=== PATIENT | female | born 1955 | race American Indian/Alaskan Native ===

== ENCOUNTER 2019-01-25 23:56 | Emergency (ER) | payer SELFPAY ==
--- NOTE | 2019-01-26 00:14 | Emergency Department Report ---
HPI - General Time Seen by Provider: 01/26/19 00:12 - HPI HPI: Room 2 The patient is a 63-year-old female presenting with a chief complaint of chest pain. The patient states her symptoms began this evening at approximately 21:00 with substernal chest pain associated with shortness of breath, nausea/vomiting and diaphoresis. Patient states she took an aspirin but it did not help. Patient gets her pain score 10/10. The patient states she had a cardiac stent placed in 2008 Location: Chest Duration: Constant since 21:00 Quality: Pain Severity: 10/10 Modifying factors: [see above] Context: [see above] Mode of transportation: [not driving] ED Past Medical Hx - Past Medical History Hx Hypertension: Yes Hx Heart Attack/AMI: Yes - Surgical History Hx Coronary Stent: Yes (2008) - Family History Family history: no significant - Social History Smoking Status: Never Smoker Substance Use Type: None - Medications Home Medications: Home Medications Medication Instructions Recorded Confirmed Last Taken Type Aspirin [Aspirin BABY CHEW TAB] 81 mg PO DAILY 11/17/14 11/17/14 Unknown History amLODIPine [Norvasc] 5 mg PO DAILY #90 tab 11/17/14 Unknown Rx Ciprofloxacin HCl [Ciprofloxacin 500 mg PO Q12H #14 tab 11/18/14 Unknown Rx TAB] ED Review of Systems ROS: Stated complaint: CHEST PAIN Other details as noted in HPI Constitutional: diaphoresis Eyes: denies: eye pain ENT: denies: throat pain Respiratory: shortness of breath Cardiovascular: chest pain Endocrine: no symptoms reported Gastrointestinal: nausea, vomiting Genitourinary: dysuria Musculoskeletal: denies: back pain Neurological: denies: headache Physical Exam - Physical Exam Physical Exam: GENERAL: The patient is well-developed well-nourished female lying on stretcher appearing to be in moderate discomfort. [] HEENT: Normocephalic. Atraumatic. Extraocular motions are intact. Patient has moist mucous membranes. NECK: Supple. Trachea midline CHEST/LUNGS: Clear to auscultation. There is no respiratory distress noted. HEART/CARDIOVASCULAR: Regular. There is no tachycardia. There is no gallop rub or murmur. ABDOMEN: Abdomen is soft, nontender. Patient has normal bowel sounds. There is no abdominal distention. SKIN: There is no rash. There is no diaphoresis. NEURO: The patient is awake, alert, and oriented. The patient is cooperative. The patient has normal speech MUSCULOSKELETAL: There is no evidence of acute injury. ED Course - Reevaluation(s) Reevaluation #1: 01/26/19 00:29 Status post medication the patient states her pain has decreased to a 4/10 - Consultations Consultation #1: 01/26/19 00:09 EKG sent to cardiology (Dr Odom) 01/26/19 00:13 Dr. Odom called Consultation #2: 01/26/19 00:[address] Up- will come into hospital for cath ED Medical Decision Making - Lab Data Result diagrams: 01/26/19 00:25 - EKG Data -: EKG Interpreted by Me EKG shows normal: sinus rhythm Rate: normal - EKG Data When compared to previous EKG there are: previous EKG unavailable Interpretation: acute ND - Differential Diagnosis STEMI Critical Care Time: Yes Critical care time in (mins) excluding proc time.: 30 Critical care attestation.: If time is entered above; I have spent that time in minutes in the direct care of this critically ill patient, excluding procedure time. ED Disposition Clinical Impression: STEMI (ST elevation myocardial infarction) Disposition: DC-09 OP ADMIT IP TO THIS HOSP Is pt being admited?: Yes Does the pt Need Aspirin: Yes Condition: Serious Referrals: ANTONELLA REED MD [Primary Care Provider] - 3-5 Days Time of Disposition: 00:23 (awaiting recyclable products sorter)
[2019-01-26] MEDS ORDERED: NITRO-BID 2% TP ONE (00:15)
[2019-01-26] MEDS ORDERED: ASPIRIN PO ONE (00:15)
[2019-01-26] MEDS ORDERED: SUBLIMAZE IV ONE (00:15)
[2019-01-26] MEDS ORDERED: ZOFRAN IV ONE (00:15)
[2019-01-26] MEDS ORDERED: HEPARIN 10,000 UNITS/10 ML IV ONE (00:22)
[2019-01-26 00:32] VITALS: BP 161/101
[2019-01-26 00:37] LABS: Basophils # (Auto) 0.1 K/mm3 (0.0-0.1); Basophils % (Auto) 0.6 % (0.0-1.8); Eosinophils # (Auto) 0.1 K/mm3 (0.0-0.4); Eosinophils % (Auto) 1.1 % (0.0-4.3); Hematocrit 41.3 % (30.3-42.9); Lymphocytes # (Auto) 1.8 K/mm3 (1.2-5.4); Lymphocytes % (Auto) 13.8 % (13.4-35.0); Mean Corpuscular HGB Conc 34 % (30-34); Mean Corpuscular Volume 87 fl (79-97); Monocytes # (Auto) 0.4 K/mm3 (0.0-0.8); Monocytes % (Auto) 3.3 % (0.0-7.3); Platelet Count 241 K/mm3 (140-440); Red Blood Count 4.76 M/mm3 (3.65-5.03); Red Cell Distribution Width 15.1 % (13.2-15.2)
[2019-01-26] MEDS ORDERED: CALAN ONE (00:47)
[2019-01-26] MEDS ORDERED: VERSED ONE (00:47)
[2019-01-26] MEDS ORDERED: SUBLIMAZE ONE (00:47)
[2019-01-26] MEDS ORDERED: HEPARIN/NS 5000 UNIT/500ML(CATH LAB) 1,500 ML IR ONE (00:47)
[2019-01-26] MEDS ORDERED: XYLOCAINE 2% INFILTRATI ONE (00:48)
[2019-01-26] MEDS ORDERED: NITROGLYCERIN SYRINGE 3 ML ONE (00:48)
[2019-01-26] MEDS ORDERED: NACL 0.9% 500 ML 500 ML ONE (00:48)
--- NOTE | 2019-01-26 01:07 | XRay Report ---
PROCEDURE: XR CHEST 1V AP TECHNIQUE: A portable upright view the chest was obtained. HISTORY: chest pain COMPARISONS: None FINDINGS: The heart size is at the upper limits of normal. The lungs appear congested. There is mild atelectasi s versus scarring in the middle third of the left lung. Pleural fluid is not seen. There is generaliz ed interstitial prominence. The skeletal structures do not show any acute changes. IMPRESSION: Congestive heart failure pattern. Localized scarring versus atelectasis in the middle third of the le ft lung.. This document is electronically signed by Darius Peralta MD., January 26 2019 01:05:32 AM ET
[2019-01-26] MEDS: HEPARIN 10,000 UNITS/10 ML ONE ×2 (01:08→01:12)
[2019-01-26 01:18] LABS: BUN/Creatinine Ratio 20; Blood Urea Nitrogen 10 mg/dL (7-17); Creatine Kinase MB 2.3 ng/mL (0.0-4.0); Hemolysis Index 44
[2019-01-26] MEDS ORDERED: AGGRASTAT DRIP (12.5 MG/250 ML) 12,500 MCG/250 ML BAG IV ONE (01:21)
[2019-01-26] MEDS ORDERED: TRIDIL DRIP 50MG/250ML 50 MG/250 ML BOTTLE ONE (01:21)
[2019-01-26] MEDS: HEPARIN/ 0.45% NACL-25,000 UNIT/500 ML 25,000 UNIT/500 ML BAG IV SCH ×2 (01:40→01:52)
[2019-01-26] MEDS ORDERED: LOPRESSOR IV ONE (01:42)
[2019-01-26 01:46] LABS: INR 0.98 (0.87-1.13)
[2019-01-26] MEDS ORDERED: TRIDIL DRIP 50MG/250ML 50 MG/250 ML BOTTLE IV ONE (01:52)
[2019-01-26] MEDS ORDERED: MORPHINE IV PRN (01:52)
[2019-01-26] MEDS ORDERED: AGGRASTAT DRIP (12.5 MG/250 ML) 12,500 MCG/250 ML BAG IV SCH (02:00)
[2019-01-26] MEDS ORDERED: HEPARIN/ 0.45% NACL-25,000 UNIT/500 ML 25,000 UNIT/500 ML BAG IV SCH (02:00)
[2019-01-26] MEDS ORDERED: NACL 0.9% 1000 ML 1,000 ML IV SCH (02:00)
[2019-01-26 02:02] LABS: Partial Thromboplastin Time 75.4 Sec. (24.2-36.6)
--- NOTE | 2019-01-26 02:03 | History and Physical Report ---
History of Present Illness Date of examination: 01/26/19 Date of admission: 01/26/2019 Chief complaint: chest pain History of present illness: 63 year-old female history of hypertension and hyperlipidemia coronary disease with PCI in 2008 heavy smoker who states having chest pain midsternal starting at 9 PM while watching TV has some nausea and vomiting but no relief in the pain after aspirin. Patient drove herself to the hospital with chest pain on EKGs found to have an acute anterior wall AK with reciprocal changes patient was brought emergently to the laboratory associate which revealed left main distal 60% LAD stent was patent but just proximal had thrombus within 99% stenosis circumflex was patent obtuse marginal 1 and obtuse marginal 2 were osorio nt RCA proximal ostial 95% lesion mid 90% with left to right collaterals with normal LV function. Perform balloon angioplasty of the mid LAD with 2.5 x 12 mm balloon inflations restored ZAID-3 flow with no stenosis to 50% patient was chest pain-free intravascular ultrasound revealed significant left main stenosis with plaque burden area of 70%. Done via the right radial approach. 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 pt last saw a physcian two years ago only taking asa . Past History Past Medical History: CAD (pci of lad 2008), hypertension, hyperlipidemia Past Surgical History: hysterectomy Social history: smoking. denies: alcohol abuse, prescription drug abuse, IV drug use Medications and Allergies Allergies Allergy/AdvReac Type Severity Reaction Status Date / Time Penicillins Allergy Hives Verified 11/17/14 16:14 Home Medications Medication Instructions Recorded Confirmed Last Taken Type Aspirin [Aspirin BABY CHEW TAB] 81 mg PO DAILY 11/17/14 11/17/14 Unknown History amLODIPine [Norvasc] 5 mg PO DAILY #90 tab 11/17/14 Unknown Rx Ciprofloxacin HCl [Ciprofloxacin 500 mg PO Q12H #14 tab 11/18/14 Unknown Rx TAB] Active Meds: Active Medications Aspirin (Baby Aspirin) 81 mg PO QDAY YAKELIN Tirofiban/Sodium Chloride (Aggrastat Drip (12.5 Mg/250 Ml)) 12,500 mcg in 250 mls @ 0 mls/hr IV DIRECT YAKELIN; Protocol Stop: 01/26/19 19:59 Heparin Sodium/Sodium Chloride (Heparin/ 0.45% Nacl-25,000 Unit/500 Ml) 500 mls @ 18.507 mls/hr IV TITRATE YAKELIN; Protocol Metoprolol Tartrate (Lopressor) 50 mg PO BID YAKELIN Morphine Sulfate (Morphine) 2 mg IV Q5MIN PRN PRN Reason: Chest Pain unrelieved by NTG Review of Systems All systems: negative (as per hpi) Physical Examination Vital Signs Pulse Resp 88 26 H 01/26/19 00:11 01/26/19 00:11 General appearance: mild distress HEENT: Positive: PERRL, Mucus Membranes Moist Neck: Positive: neck supple, trachea midline Cardiac: Positive: Reg Rate and Rhythm, S1/S2, Audible Murmur Lungs: Positive: clear to auscultation, Normal Breath Sounds Neuro: Positive: Grossly Intact Abdomen: Positive: Soft, Active Bowel Sounds. Negative: Tender, Distended Female genitourinary: deferred Skin: Positive: Clear Incision: Cardiac Cath Site Musculoskeletal: No Pain, Normal Range of Motion Extremities: Present: normal. Absent: edema Results 01/26/19 00:25 01/26/19 00:25 Cardiac Enzymes 01/26/19 Range/Units 00:25 CK-MB (CK-2) 2.3 (0.0-4.0) ng/mL CBC 01/26/19 Range/Units 00:25 WBC 13.3 H (4.5-11.0) K/mm3 RBC 4.76 (3.65-5.03) M/mm3 Hgb 14.0 (10.1-14.3) gm/dl Hct 41.3 (30.3-42.9) % Plt Count 241 (140-440) K/mm3 Lymph # 1.8 (1.2-5.4) K/mm3 Vermilion # 0.4 (0.0-0.8) K/mm3 Eos # 0.1 (0.0-0.4) K/mm3 Baso # 0.1 (0.0-0.1) K/mm3 Comprehensive Metabolic Panel 01/26/19 Range/Units 00:25 Sodium 136 L (137-145) mmol/L Potassium 3.5 L (3.6-5.0) mmol/L Chloride 99.9 (98-107) mmol/L Carbon Dioxide 21 L (22-30) mmol/L BUN 10 (7-17) mg/dL Creatinine 0.5 L (0.7-1.2) mg/dL Glucose 178 H (65-100) mg/dL Calcium 9.0 (8.4-10.2) mg/dL - Imaging and Cardiology Cardiac cath: report reviewed ( left main distal 60% LAD stent was patent but just proximal had thrombus within 99% stenosis circumflex was patent obtuse marginal 1 and obtuse marginal 2 were patent RCA proximal ostial 95% lesion mid 90% with left to right collaterals with normal LV function. Perform balloon angioplasty of the mid LAD with 2.5 x 12 mm balloon inflations restored ZAID-3 flow with no stenosis to 50% ) EKG interpretations - Telemetry EKG Rhythm: Sinus Rhythm (normal sinus rhythm acute ST elevation anterior leads with reciprocal changes) Assessment and Plan Patient is currently chest pain-free reduced stenosis in the LAD to less than 50% with ZAID 3 flow patient is on IV heparin low intensity IV Aggrastat IV nitroglycerin and IV fluids patient will be on aspirin and beta storm and high -dose statin patient be transferred to [facility] for bypass surgery discussed this in detail with the patient - Patient Problems (1) Acute anterior wall AK Status: Acute (2) Acute diastolic CHF (congestive heart failure), NYHA class 4 Status: Acute (3) Respiratory failure Status: Acute Qualifiers: Chronicity: acute Respiratory failure complication: hypoxia Qualified Code(s): J96.01 - Acute respiratory failure with hypoxia (4) Hypertension Status: Chronic Qualifiers: Hypertension type: essential hypertension Qualified Code(s): I10 - Essential (primary) hypertension (5) Hyperlipidemia Status: Chronic Qualifiers: Hyperlipidemia type: mixed hyperlipidemia Qualified Code(s): E78.2 - Mixed hyperlipidemia (6) CAD (coronary artery disease) Status: Chronic Qualifiers: Coronary Disease-Associated Artery/Lesion type: [place] artery Associated angina: with unstable angina (7) Smoker Status: Chronic
--- NOTE | 2019-01-26 02:13 | Prelim Cardiac Cath Report ---
Preliminary Cath Report - Hemodynamic Findings Aorta(AO): 161/88 Left Ventricular(LV): 164 End Diastolic Pressure(EDP): 30-35 mmHg - Other Findings Estimated blood loss: none Dominance: right Estimated Ejection Fraction: 50 LV Contractility: normal Coronary Anatomy: Left main distal 50-60% large caliber vessel LAD proximally medium caliber mid 99% with ZAID 2 flow thrombus noted small stent patent rested LAD is patent small diagonal one small diagonal 2. Circumflex large caliber vessel in the AV groove patent with mild luminal irregularities and obtuse marginal 1 and obtuse vital to medium caliber vessels patent with mild luminal irregularities and UC collaterals into the small PDA from septal small left to right collaterals RCA ostial proximal 95% mid 90% of the medium to small caliber vessel with normal LV function elevated left end-diastolic pressure. PCI of the LAD in gait or less systolic EV3.5 guiding catheter cross into the distal LAD which worked with the wire balloon the mid LAD with 2.5 x 12 mm balloon 8-12 dominick for 15 seconds 2 inflations restoring ZAID-3 flow reducing stenosis to 50% and less with re solution of thrombus. Intravascular ultrasound showed diffuse disease in the LAD with distal reference vessel 3. millimeters with intravascular ultrasound of the left main shows an MLA of 5 mm heavy calcification noted. Ballooned again the LAD and this time ZAID-3 floor was still continued in stenosis of less than 50% was maintained patient is chest pain-free removed coronary wire multiple and canals reveal continue ZAID-3 flow to stenosis less than 50% patient's chest pain free in view of left main disease patient will be transferred to [facility] for bypass surgery is on IV heparin IV Aggrastat IV nitroglycerin and IV fluids respiratory failure has improved and is on 3 L nasal cannula and procedure was done via the right radial artery still technique 6 Welsh guiding catheter cocci were 6 Welsh radial sheath was DC'd radial band applied no hematoma Post Diagnosis: Poba of the LAD left main [id number]% and RCA ostial proximal 95% mid 90% transfer to [facility] for bypass surgery with normal LV function Recommendations: CABG (transfer to [facility])
--- NOTE | 2019-01-26 09:03 | Discharge Summary ---
Providers - Providers Date of Admission: 01/26/2019 Date of discharge: 01/26/19 Attending physician: Dr. Up 01/26/19 Consult to Cardiac Rehabilitation [CONS] Routine Reason For Exam: post pci Consult to Cardiac Rehabilitation [CONS] Routine Reason For Exam: post pci 01/26/19 01:57 Consult to Physician [CONS] Routine Comment: Consulting Provider: JOHNATHON AVILES Physician Instructions: Reason For Exam: acute mi and respiratory failure [facility] Reason for admission: STEMI Condition: Serious Pertinent studies: [facility] with PCI - see dictated cath report Procedures: [facility] with PCI - see dictated cath report Hospital course: 63 year-old female history of hypertension and hyperlipidemia coronary disease with PCI in 2009 heavy smoker who states having chest pain midsternal starting at 9 PM while watching TV has some nausea and vomiting but no relief in the pain after aspirin. Patient drove herself to the hospital with chest pain on EKGs found to have an acute anterior wall WI with reciprocal changes patient was brought emergently to the screedman/laborer which revealed left main distal 60% LAD stent was patent but just proximal had thrombus within 99% stenosis circumflex was patent obtuse marginal 1 and obtuse marginal 2 were patent RCA proximal ostial 95% lesion mid 90% with left to right collaterals with normal LV function. Perform balloon angioplasty of the mid LAD with 2.5 x 12 mm balloon inflations restored ZAID-3 flow with no stenosis to 50% patient was chest pain-free intravascular ultrasound revealed significant left main stenosis with plaque burden area of 70%. Done via the right radial approach. 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 pt last saw a physcian two years ago only taking asa . Pt tx to [facility] for further management. Disposition: [id number]/TX-70 ANOTHER TYPE HLTHCARE - Discharge Diagnoses (1) STEMI (ST elevation myocardial infarction) Status: Acute (2) Acute anterior wall WI Status: Acute (3) Acute diastolic CHF (congestive heart failure), NYHA class 4 Status: Acute (4) Respiratory failure Status: Acute Qualifiers: Chronicity: acute Respiratory failure complication: hypoxia Qualified Code(s): J96.01 - Acute respiratory failure with hypoxia (5) CAD (coronary artery disease) Status: Chronic Qualifiers: Coronary Disease-Associated Artery/Lesion type: upper [place] artery Associated angina: with unstable angina (6) Hyperlipidemia Status: Chronic Qualifiers: Hyperlipidemia type: mixed hyperlipidemia Qualified Code(s): E78.2 - Mixed hyperlipidemia (7) Hypertension Status: Chronic Qualifiers: Hypertension type: essential hypertension Qualified Code(s): I10 - Essential (primary) hypertension (8) Smoker Status: Chronic Core Measure Documentation - Palliative Care Palliative Care/ Comfort Measures: Not Applicable - Core Measures Any of the following diagnoses?: acute WI - Acute WI Discharge Requirements Aspirin at discharge: Yes RENETTA/ARB for LVSD if EF <40%: Not Applicable Beta storm at discharge: Yes Statin for LDL = or >100 mg/dl on DC: Yes Exam - Constitutional Vitals: Temp Pulse Resp BP Pulse Ox 97.2 F L 93 H 19 161/101 97 01/26/19 00:17 01/26/19 00:30 01/26/19 00:30 01/26/19 00:40 01/26/19 00:40 Plan Wound: per your surgeon's advice Follow up with: ANTONELLA REED MD [Primary Care Provider] - 3-5 Days
[2019-01-26] MEDS ORDERED: BABY ASPIRIN PO SCH (10:00)
[2019-01-26] MEDS ORDERED: LOPRESSOR PO SCH (10:00)
--- NOTE | 2019-01-26 13:30 | Cardiac Catherization Report ---
LEFT HEART CATHETERIZATION/PERCUTANEOUS CORONARY INTERVENTION/INTRAVASCULAR ULTRASOUND REPORT CLINICAL INFORMATION: This is a 63-year-old -[place] female with history of smoking, noncompliant with medication in 2009 and PCI of the LAD, presents with chest pain since 9:00 p.m., who drove herself to the ED and was found to have an acute anterior wall GA and is brought emergently to the laborer powerhouse for rescue intervention. The patient received heparin and nitro paste and pain medication. Chest pain has finally improved. The patient received 0.5 mg Versed. The patient had about 30 minutes of moderate sedation, supervised. PROCEDURES PERFORMED: 1. Left heart catheterization performed via the right radial artery, sterile technique, local anesthesia, 6-Polish radial sheath inserted. 2. LV gram done in SHARON and WIN view shows normal LV function, LVEDP of 35 mmHg, LV is 164 mmHg, aortic is 161/88. No gradient across the aortic valve on pullback. The left and right coronary system heavy calcified on fluoroscopy. JR4 has an ostial proximal 90-95% lesion, mid has an 80% lesions, [id number] caliber vessel and distal is patent. Left system given EBU 3.5 guiding catheter. Left main is a medium to large caliber vessel, patent. Distal has a 60% lesion, bifurcates medium caliber to large caliber LAD, proximal patent, mid just proximal to the stent has a focal 99% with thrombus noted, ZAID 2 flow, small diagonal 1. Circumflex, AV groove is a medium to large caliber, patent with mild luminal irregularities. OM1 and OM2 is gwdgqy-[id number] caliber vessel, patent with mild luminal irregularities. Percutaneous coronary intervention/intravascular ultrasound of the LAD: 1. Engage the left system EBU 3.5 guiding catheter. We crossed the distal LAD with short Jasper wire. 2. Restored ZAID 3 flow. In view of thrombus, 0% reduced stenosis from 99% to less than 50% with 2.5 x 12 balloon at 12 atmospheres x 2 inflations. The patient's chest pain improved. 3. Intravascular ultrasound showed distal reference vessel 3 mm highly calcified all the way back to the ostium, but distal left main was calcified with an MLA of 5 mm2 with a plaque burden of 70%. 4. I had to reballoon the mid LAD for recurrent chest pain but this time it stayed open. Adequate ACT was obtained. 5. The patient was on an IV heparin, IV nitro, IV Aggrastat and now is currently chest pain free. 6. Removed coronary wire and continued ZAID 3 flow in the LAD with reduced stenosis in the mid LAD from 99% to less than 50% distal left main, 60%. No thrombus or embolization noted. 7. In view of the patient's left main disease and chest pain free, the patient will be transferred to [facility]. Discussed with on-call CT surgery, will be transferred to [facility] for bypass surgery. 8. A 6-Polish guiding catheter taken over guidewire, 6-Polish radial sheath was discontinued. Radial band applied. No hematoma, no bleeding. SUMMARY: 1. Successful POBA of the mid LAD with intravascular ultrasound with 2.5 x 12 balloon restoring ZAID 3 flow, reduced stenosis 99% less than 50%, but unfortunately, the patient has distal left main disease, around 60% with an MLA of less than 5 mm2. Circumflex is patent with mild luminal irregularities. OM1 and OM2 are patent with mild irregularities. RCA proximal / ostial 95% collaterals from left to right, feeding to a small PDA and RCA proximal and ostial has 90%, mid 80%, small pda Discussed in detail with the patient. [facility]# [id number] ZELALEM/SUSANNA POZO
== END 2019-01-26 18:56 | disposition other institution (70) ==
LOC: ED 23:56 → CC1 01-26 02:51 → ED 01-26 18:56
DX: I21.3 ST elevation (STEMI) myocardial infarction of unspecified site (principal); I10 Essential (primary) hypertension; Z95.1 Presence of aortocoronary bypass graft
CPT/HCPCS: 36415; 71045; 80048; 82550; 82553; 83880; 84484; 85025; 85347; 85610; 85730; 92920; 92978; 93005; 93010; 93458; 96365; 96375; 99291; C1725; C1753; C1769; C1887; C1894; J1644; J2405; J3010; J3246; J7040; J2250; Q9967